=== PATIENT | female | born 1995 | race African-American/Black ===

== ENCOUNTER 2018-11-19 12:20 | Emergency (ER) | payer OTHER | END 2018-11-19 13:28 | disposition home or self-care (01) | LOC: JERFT 12:20 ==

== ENCOUNTER 2019-01-18 08:03 | Emergency (ER) | payer OTHER ==
[2019-01-18 08:14] VITALS: BP 95/54; TEMP 98.1; BMI 18.3
--- NOTE | 2019-01-18 08:32 | PDOC ---
History of Present Illness - General Chief Complaint: Bone Injury Stated Complaint: FOOT PAIN Past History - Past Medical History Allergies/Adverse Reactions: Allergies Allergy/AdvReac Type Severity Reaction Status Date / Time Latex, Natural Rubber Allergy Verified 11/19/18 12:37 pineapple Allergy Verified 11/19/18 12:37 COPD: No - Reproductive History (#): 1 Para: 0 Spontaneous : 0 - Immunization History Immunization Up to Date: Yes - Suicide/Smoking/Psychosocial Hx Smoking History: Current every day smoker Information on smoking cessation initiated: No Hx Alcohol Use: No Drug/Substance Use Hx: No Substance Use Type: Marijuana *Physical Exam - Vital Signs Last Vital Signs Temp Pulse Resp BP Pulse Ox 98.1 F 108 H 18 95/54 L 100 01/18/19 08:12 01/18/19 08:12 01/18/19 08:12 01/18/19 08:12 01/18/19 08:12 *DC/Admit/Observation/Transfer Diagnosis at time of Disposition: Toe fracture, left Qualifiers: Encounter type: initial encounter Toe: lesser toe Fracture type: closed Phalanx : middle Fracture alignment: nondisplaced Qualified Code(s): S92.525A - Nondisplaced fracture of middle phalanx of left lesser toe(s), initial encounter for closed fracture - Discharge Dispostion Disposition: HOME Condition at time of disposition: Stable Decision to Admit order: No - Referrals Referrals: Guillermo Claros MD [Primary Care Provider] - Ramin Dhaliwal MD [Staff Physician] - - Patient Instructions Printed Discharge Instructions: DI for Toe Fracture Additional Instructions: You were evaluated for your toe pain today You have a broken bone in your L 3rd toe Please keep the toe geraldo taped for comfort You may take Motrin 600mg every 6hours as needed for pain Please follow up with podietry in one week. A referral has been provided to you Follow up with your primary care doctor this week regarding your depression. Return to the ER if you have worsening pain, suicidal thoughts, or if you have any changes in your symptoms - Post Discharge Activity
[2019-01-18] MEDS ORDERED: IBUPROFEN 600 MG TABLET (FP) PO ONE ×2 (09:22→09:24)
[2019-01-18 09:27] VITALS: PULSE 90
== END 2019-01-18 09:26 | disposition home or self-care (01) ==
LOC: JERFT 08:03
PROC: 2W3VXYZ Immobilization of Left Toe using Other Device (ICD-10-PCS; principal; 2019-01-18)
DX: S92.525A Nondisplaced fracture of middle phalanx of left lesser toe(s), initial encounter for closed fracture (principal); W01.0XXA Fall on same level from slipping, tripping and stumbling without subsequent striking against object, initial encounter; Y93.89 Activity, other specified; Y92.89 Other specified places as the place of occurrence of the external cause; Y99.8 Other external cause status
CPT/HCPCS: 73610-TC-LT-FY; 73630-TC-LT; 99281-25

== ENCOUNTER 2019-05-30 16:18 | Emergency (ER) | payer SELFPAY ==
[2019-05-30 16:34] VITALS: BP 111/68; PULSE 96; TEMP 98.5; BMI 19.8
--- NOTE | 2019-05-30 16:34 | PDOC ---
Rapid Medical Evaluation Chief Complaint: Vaginal Bleeding Time Seen by Provider: 05/30/19 16:32 Medical Evaluation: Allergies Allergy/AdvReac Type Severity Reaction Status Date / Time Latex, Natural Rubber Allergy Verified 05/30/19 16:31 pineapple Allergy Verified 05/30/19 16:31 12 16:32 This patient received a in-person evaluation in triage cc/HPI: spotting x 2 weeks and intermittent cramping and lower back pain, states taking oral contraceptives, LMP 3rd week of April PE: NAD unlabored breathing heart s1s2 orders: urine test This patient will proceed to ED for further evaluation Discharge Disposition - Diagnosis Vaginal bleeding - Discharge Dispostion Disposition: HOME Condition at time of disposition: Good - Referrals Referrals: Guillermo Claros MD [Primary Care Provider] - - Patient Instructions Printed Discharge Instructions: Oral Contraceptives: Risks and Benefits Additional Instructions: Your vaginal bleeding is most likely caused by your control Your test was negative and your blood count were normal Please follow-up with CLAIM REPRESENTATIVE at [facility] at [phone] - Post Discharge Activity
--- NOTE | 2019-05-30 16:52 | PDOC ---
History of Present Illness - General Chief Complaint: Vaginal Bleeding Stated Complaint: VAGINAL BLEEDING Time Seen by Provider: 05/30/19 16:32 Past History - Past Medical History Allergies/Adverse Reactions: Allergies Allergy/AdvReac Type Severity Reaction Status Date / Time Latex, Natural Rubber Allergy Verified 05/30/19 16:31 pineapple Allergy Verified 05/30/19 16:31 COPD: No - Reproductive History (#): 1 Para: 0 Spontaneous : 0 - Immunization History Immunization Up to Date: Yes - Psycho Social/Smoking Cessation Hx Smoking History: Never smoked Hx Alcohol Use: No Drug/Substance Use Hx: No Substance Use Type: Marijuana *Physical Exam - Vital Signs Last Vital Signs Temp Pulse Resp BP Pulse Ox 98.5 F 96 H 18 111/68 99 05/30/19 16:32 05/30/19 16:32 05/30/19 16:32 05/30/19 16:32 05/30/19 16:32 Medical Decision Making - Medical Decision Making 05/30/19 16:52 malena rodriguez Discharge - Follow up/Referral Referrals: Guillermo Claros MD [Primary Care Provider] - - Patient Discharge Instructions - Post Discharge Activity
--- NOTE | 2019-05-30 16:52 | PDOC ---
History of Present Illness - General Chief Complaint: Vaginal Bleeding Stated Complaint: VAGINAL BLEEDING Time Seen by Provider: 05/30/19 16:32 History Source: Patient - History of Present Illness Timing/Duration: reports: getting worse Past History - Past Medical History Allergies/Adverse Reactions: Allergies Allergy/AdvReac Type Severity Reaction Status Date / Time Latex, Natural Rubber Allergy Verified 05/30/19 16:31 pineapple Allergy Verified 05/30/19 16:31 COPD: No - Reproductive History (#): 1 Para: 0 Spontaneous : 0 - Immunization History Immunization Up to Date: Yes - Psycho Social/Smoking Cessation Hx Smoking History: Never smoked Hx Alcohol Use: No Drug/Substance Use Hx: No Substance Use Type: Marijuana Review of Systems - Review of Systems Constitutional: No: Weakness Respiratory: No: Shortness of Breath Cardiac (ROS): No: Chest Pain, Syncope *Physical Exam - Vital Signs Last Vital Signs Temp Pulse Resp BP Pulse Ox 98.5 F 96 H 18 111/68 99 05/30/19 16:32 05/30/19 16:32 05/30/19 16:32 05/30/19 16:32 05/30/19 16:32 - Physical Exam General Appearance: Yes: Appropriately Dressed. No: Apparent Distress HEENT: positive: Normal Voice Neck: positive: Supple Respiratory/Chest: negative: Respiratory Distress Gastrointestinal/Abdominal: positive: Soft. negative: Tender Integumentary: positive: Dry, Diaphoresis Neurologic: positive: Fully Oriented, Alert ED Treatment Course - LABORATORY CBC & Chemistry Diagram: 05/30/19 17:00 Medical Decision Making - Medical Decision Making 05/30/19 16:52 23-year-old female , s/p elective AB remotely, started on new OCP x1 month and now here complaining of vaginal bleeding x2 weeks, currently using 3 pads a day. Also complaining of possible dizziness, no weakness syncope shortness of breath or chest pain. 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 dizziness 05/30/19 17:19 Upreg negative and CBC within normal limits. Will discharge with [employer] follow-up Discharge - Discharge Information Problems reviewed: Yes Clinical Impression/Diagnosis: Vaginal bleeding Condition: Good Disposition: HOME - Follow up/Referral Referrals: Guillermo Claros MD [Primary Care Provider] - - Patient Discharge Instructions Patient Printed Discharge Instructions: Oral Contraceptives: Risks and Benefits Additional Instructions: Your vaginal bleeding is most likely caused by your control Your test was negative and your blood count were normal Please follow-up with [facility] MACHINE at [facility] at [phone] - Post Discharge Activity
[2019-05-30 17:15] LABS: BASO % 0.7 % (0-2.0); EOS % 5.9 % (0-4.5); HEMATOCRIT 37.4 % (32.4-45.2); HEMOGLOBIN 12.8 GM/dL (10.7-15.3); LYMPH % 31.5 % (8-40); MCH 28.9 pg (25.7-33.7); MCHC 34.2 g/dl (32.0-36.0); MEAN CELL VOLUME 84.6 fl (80-96); MEAN PLT VOLUME 8.3 fl (7.5-11.1); MONO % 4.4 % (3.8-10.2); NEUT % 57.5 % (42.8-82.8); PLATELET COUNT 275 K/MM3 (134-434); RBC 4.42 M/mm3 (3.60-5.2); RDW 12.2 % (11.6-15.6); WHITE BLOOD COUNT 5.2 K/mm3 (4.0-10.0)
== END 2019-05-30 17:32 | disposition home or self-care (01) ==
LOC: JER 16:18
DX: N93.9 Abnormal uterine and vaginal bleeding, unspecified (principal); Z91.048 Other nonmedicinal substance allergy status; Z91.018 Allergy to other foods
CPT/HCPCS: 36415; 84703; 85025; 99282-25

== ENCOUNTER 2020-11-09 09:34 | Emergency (ER) | payer OTHER ==
[2020-11-09 09:48] VITALS: BP 97/65; PULSE 89; TEMP 99; BMI 18.3
[2020-11-09] MEDS ORDERED: SODIUM CHLORIDE 0.9% 500 ML INFUS.BAG IV ONE ×2 (10:29→11:45)
[2020-11-09] MEDS ORDERED: ONDANSETRON 4 MG/2 ML VIAL IVPUSH ONE (10:29)
[2020-11-09] MEDS ORDERED: ONDANSETRON 4 MG/2 ML VIAL ONE (11:25)
[2020-11-09 11:37] LABS: BASO % 0.1 % (0-2.0); EOS % 1.2 % (0-4.5); HEMATOCRIT 39.4 % (32.4-45.2); HEMOGLOBIN 13.6 GM/dL (10.7-15.3); LYMPH % 6.8 % (8-40); MCH 28.8 pg (25.7-33.7); MCHC 34.5 g/dl (32.0-36.0); MEAN CELL VOLUME 83.5 fl (80-96); MEAN PLT VOLUME 8.1 fl (7.5-11.1); MONO % 4.5 % (3.8-10.2); NEUT % 87.4 % (42.8-82.8); PLATELET COUNT 283 K/MM3 (134-434); RBC 4.72 M/mm3 (3.60-5.2); RDW 12.9 % (11.6-15.6); WHITE BLOOD COUNT 6.3 K/mm3 (4.0-10.0)
[2020-11-09 11:43] LABS: BLOOD UREA NITROGEN 9.9 mg/dL (7-18); CALCIUM 8.7 mg/dL (8.5-10.1)
[2020-11-09 11:46] LABS: CREATININE 0.6 mg/dL (0.55-1.3)
[2020-11-09 11:48] LABS: BILIRUBIN,TOTAL 0.7 mg/dL (0.2-1); TOT PROT 7.4 g/dl (6.4-8.2)
[2020-11-09 12:44] LABS: EPI CELLS 19 /uL (0-25.1); HCG,QUALITATIVE URINE Negative; HYALINE CASTS 0 /uL (0-3.1); PH,URINE 5.5 (5.0-8.0); URINE APPEARANCE CLEAR; URINE BACTERIA 1037 /uL (0-1359); URINE BILIRUBIN NEGATIVE (NEGATIVE); URINE COLOR YELLOW; URINE GLUCOSE (UA) NEGATIVE (NEGATIVE); URINE KETONE NEGATIVE (NEGATIVE); URINE LEUK ESTERASE NEGATIVE (NEGATIVE); URINE NITRITE NEGATIVE (NEGATIVE); URINE PROTEIN NEGATIVE (NEGATIVE); URINE RBC 6 /uL (0-23.9); URINE UROBILINOGEN 0.2 mg/dL (0.2-1.0); URINE WBC 4 /uL (0-25.8)
== END 2020-11-09 14:33 | disposition home or self-care (01) ==
LOC: JER 09:34
PROC: 3E033GC Introduction of Other Therapeutic Substance into Peripheral Vein, Percutaneous Approach (ICD-10-PCS; principal; 2020-11-09)
DX: R11.2 Nausea with vomiting, unspecified (principal); R19.7 Diarrhea, unspecified
CPT/HCPCS: 36415; 80053; 81003; 83690; 84703; 85025; 87086; 96374; 99284-25